=== PATIENT | male | born 1990 | race Caucasian/White ===

== ENCOUNTER → 2016-06-19 | Outpatient (CLI) | payer BC ==
[~2016-06-19] MED LIST: ACET-1311 PO; NAPR1TAB9 PO; OXYC1TAB3 PO
--- NOTE | 2016-06-19 11:26 | DIAGNOSTIC IMAGING REPORT ---
CT SCAN OF THE PARANASAL SINUSES CLINICAL HISTORY: Recurrent sinusitis. COMPARISON STUDY: CT of the brain dated 02/26/2006. TECHNIQUE: High-resolution CT scan of the paranasal sinuses is performed. Images are reviewed in the axial, sagittal, and coronal planes. IV contrast was not administered for this examination. CT DOSE: 273.21 mGycm FINDINGS: Maxillary antra: There is trace dependent mucosal thickening seen bilaterally. Anterior ethmoid sinuses: Clear. Posterior ethmoid sinuses: Trace mucosal thickening is seen in the most posterior air cells bilaterally. Sphenoid sinuses: Mild to moderate mucosal thickening is present on the left. Trace mucosal thickening is seen on the right. Frontal sinuses: Clear. Ostiomeatal complexes: Patent bilaterally. Frontoethmoidal and sphenoethmoidal recesses: The sphenoethmoidal recesses appear patent but are significantly narrowed by mucosal thickening, left greater than right. Frontoethmoidal recesses are clear. Carotid arteries: The carotid arteries are covered and without septal attachments. Ethmoid roofs: There is asymmetric elevation of the left ethmoid roof as compared to the right. Nasal turbinates: Normal in appearance. Nasal septum: There is mild leftward deviation of the bony nasal septum. Optic nerves: Covered. Orbits: The bony orbits are intact. Orbital contents are normal in appearance. Calvarium: The imaged calvarium is normal in appearance Mastoid air cells: There is subtotal opacification of the mastoid air cells bilaterally. There is fluid/debris within the middle ear bilaterally. Brain parenchyma: Partially visualized brain parenchyma is within normal limits. IMPRESSION: 1. Paranasal sinus disease as above. 2. There is subtotal opacification of the mastoid air cells bilaterally. 3. Fluid is present within the middle ear bilaterally. Electronically signed by: David Stanton M.D. 06/19/2016 11:24 AM Dictated Date/Time: 06/19/2016 11:20 AM
== END | disposition home or self-care (01) ==
LOC: C.CTS 10:48
PROVIDERS: ATTEND Nurse Practitioner
DX: H93.8X3 Other specified disorders of ear, bilateral (principal); J32.9 Chronic sinusitis, unspecified

== ENCOUNTER → 2016-07-03 | Outpatient (CLI) | payer BC ==
[~2016-07-03] MED LIST changes: -NAPR1TAB9 PO
[2016-07-03 16:57] LABS: BASO % 0.3 %; BASO ABS # 0.03 K/uL (0-0.2); COMPLETE YES; HEMATOCRIT 41.1 % (42-52); IG% 0.2 %; LYMPH % 18.7 %; LYMPH ABS # 1.75 K/uL (1.2-3.4); MEAN CORPUSCULAR HEMOGLOBIN 28.8 pg (25-34); MEAN CORPUSCULAR HGB CONC 34.3 g/dl (32-36); MEAN PLATELET VOLUME 8.4 fL (7.4-10.4); MONO % 7.8 %; PLATELET COUNT 279 K/uL (130-400); RED BLOOD COUNT 4.89 M/uL (4.7-6.1); WHITE BLOOD COUNT 9.38 K/uL (4.8-10.8)
[2016-07-03 17:05] LABS: POTASSIUM 3.8 mmol/L (3.5-5.1)
[2016-07-03 17:09] LABS: PROTHROMBIN TIME (PATIENT) 10.7 SECONDS (9.0-12.0)
== END | disposition home or self-care (01) ==
LOC: C.LABBFT 06-25 15:40
DX: Z01.818 Encounter for other preprocedural examination (principal)

== ENCOUNTER → 2016-07-05 | Day surgery (SDC) | payer BC ==
[2016-07-02 13:00] VITALS: Ht 168.9 cm; Wt 127.3 kg
[~2016-07-05] VITALS: Ht 168.9 cm; Wt 127.3 kg
[~2016-07-05] MED LIST changes: +ATROPINE SULFATE 0.1 MG/ML 5ML SYR IV PRN; +DEXAMETHASONE SOD INJ 4 MG/ML VIAL ONE; +EpHEDrine SULFATE INJ 50 MG/ML AMP IV PRN; +FENTANYL CITRATE INJ 50 MCG/1 ML 2 ML VIAL IV PRN; +FENTANYL CITRATE INJ 50 MCG/1 ML 2 ML VIAL ONE; +HYDROCODONE/ACETAMOPHEN 5/325MG TAB PO PRN; +LACTATED RINGER'S 1000ML 1,000 ML IV SCH; +LIDOCAINE HCL 2% 2 ML VIAL (20MG/ML) ONE; +MIDAZOLAM HCL 1 MG/ML 2ML VIAL ONE; +OFLOXACIN 0.3% OP SOLN 5 ML BTL ONE; +ONDANSETRON INJ 2 MG/ML 2 ML VIAL IV PRN; +ONDANSETRON INJ 2 MG/ML 2 ML VIAL ONE; +OXYMETAZOLINE HCL 0.05% NA SPR 15 ML BTL ONE; +PROPOFOL IV EMULSION 10 MG/ML 20 ML VIAL IV ONE; +SODIUM CHLORIDE 0.9% 1000ML IV SCH; +SUCCINYLCHOLINE CHLORIDE 20 MG/ML 10 ML VIAL IV ONE
--- NOTE | 2016-07-05 09:52 | History & Physical Bridge - [place] ---
H&P Re-Evaluation Bridge Note: I have examined the patient, reviewed the History & Physical and in the interval since the performance of the History & Physical I have noted the following changes of clinical significance: No changes noted
--- NOTE | 2016-07-05 10:38 | [facility] Operative Report ---
Operative Report Operative Date Jul 05, 2016. Pre-Operative Diagnosis Dysfunction of both Eustachian Tubes, Chronic Otitis Media Post-Operative Diagnosis Same Procedure(s) Performed Bilateral T-Tube Placement Surgeon Dr Colón Roof Slater Surgeon(s) None Estimated Blood Loss 5ML Findings 1. BILATERAL MUCOID MIDDLE EAR EFFUSIONS 2. SEVERELY RETRACTED AND THICKENED TM'S BILATERALLY Specimens None I attest to the content of the Intraoperative Record and any orders documented therein. Any exceptions are noted below.
--- NOTE | 2016-07-05 10:40 | Discharge Instructions ---
Discharge Instructions Admission Reason for Admission: Eustachian Tube Dysfunction, Bilat Chronic O.m. Discharge Discharge Diagnosis / Problem: SAME Discharge Goals Goal(s): Improve function Activity Recommendations Activity Limitations: as noted below 1. DRY EAR PRECAUTIONS WHILE TUBES IN PLACE 2. NO LIFTING > OR = 15LBS FOR 2WEEKS 3. NO NOSE BLOWING FOR 2WEEKS 4. SNEEZE WITH MOUTH OPEN FOR 2WEEKS . Current Hospital Diet Patient's current hospital diet: Discharge Diet Recommended Diet: Regular Diet Procedures Procedures Performed: Bilateral T-Tube Placement Pending Studies Studies pending at discharge: no Medical Emergencies . Who to Call and When: Medical Emergencies: If at any time you feel your situation is an emergency, please call 911 immediately. . Non-Emergent Contact Non-Emergency issues call your: Surgeon . . "Provider Documentation" section prepared by Mj Colón. VTE Core Measure Inpt VTE Proph given/why not?: SCD's
--- NOTE | 2016-07-05 11:14 | OPERATIVE REPORT ---
DATE OF OPERATION: 07/05/2016 PREOPERATIVE DIAGNOSES: 1. Chronic otitis media with effusion. 2. Conductive hearing loss. 3. Eustachian tube dysfunction. POSTOPERATIVE DIAGNOSES: 1. Chronic otitis media with effusion. 2. Conductive hearing loss. 3. Eustachian tube dysfunction. PROCEDURE: Bilateral myringotomy tube placement with T-tubes. SURGEON: Dr. Colón. ANESTHESIA: General endotracheal. ESTIMATED BLOOD LOSS: 5 mL. FINDINGS: 1. Anesthesia - unable to place a laryngeal mask airway without difficulty. 2. Bilateral mucoid middle ear effusions. 3. Severely thickened and retracted tympanic membranes which were inflamed. SPECIMENS: None. COMPLICATIONS: None. INDICATIONS FOR THE PROCEDURE: The patient is a 26-year-old male with a history of chronic otitis media with effusion who has undergone at least 10 sets of bilateral myringotomy tube placements. On examination, he was found to have severely thickened tympanic membranes with likely mucoid middle ear effusion and audiogram shows bilateral mixed hearing loss with a large conductive component. I recommended bilateral myringotomy with tube placement with T tubes in the operating room given the extent of his history and difficulty with placement of those tubes in the office. He presents for the above-mentioned procedure on an outpatient elective basis. DESCRIPTION OF PROCEDURE: After informed consent had been obtained from the patient, the patient was wheeled to the operating room and placed on the operating table in the supine position. Monitors were placed and after induction of general endotracheal anesthesia after first being able to use a laryngeal mask airway, the patient's head was gently turned to the left and a speculum was inserted into the right external auditory canal. A cerumen loop was used to remove excess cerumen. A myringotomy knife was used to make a radial incision in the posterior inferior quadrant on the tympanic membrane which was found to be severely thickened and inflamed. The middle ear space was suctioned free of mucoid middle ear effusion. A silicone T-tube was then placed. The patient had some bleeding with the myringotomy and some Afrin was temporarily placed into the external auditory canal and middle ear space to stop the bleeding. This was then completely suctioned. Floxin drops were then instilled into the middle ear space and a cotton ball was placed with the conchal bowl. The left side was then addressed in a similar fashion with similar intraoperative findings. This marked end of the case. The patient tolerated the procedure well and there were no apparent complications. The patient was extubated and transferred to recovery room in stable condition. I attest to the content of the Intraoperative Record and any orders documented therein. Any exceptio ns are noted below.
--- NOTE | 2016-07-05 11:17 | Anesthesia Progress Nt - [facility] ---
Anesthesia Post Op Note Date & Time Jul 05, 2016 at 11:17 Vital Signs Pain Intensity: 0 Vital Signs Past 12 Hours Date Time Temp Pulse Resp B/P Pulse Ox O2 Delivery O2 Flow Rate FiO2 07/05/16 10:42 36.8 71 16 127/71 96 Diffusion Mask 5 07/05/16 09:47 36.6 79 18 115/75 96 Room Air Notes Mental Status: alert / awake / arousable, participated in evaluation Pt Amnestic to Procedure: Yes Nausea / Vomiting: adequately controlled Pain: adequately controlled Airway Patency, RR, SpO2: stable & adequate BP & HR: stable & adequate Hydration State: stable & adequate Anesthetic Complications: no major complications apparent
[2016-07-05 11:42] VITALS: TEMP 37
[2016-07-05 11:55] VITALS: BP 129/71; PULSE 81; O2SAT 95
== END | disposition home or self-care (01) ==
LOC: X.SURG 09:36
DX: H65.23 Chronic serous otitis media, bilateral (principal); H90.2 Conductive hearing loss, unspecified; H69.83 Other specified disorders of Eustachian tube, bilateral; J30.9 Allergic rhinitis, unspecified; Q24.9 Congenital malformation of heart, unspecified; F41.8 Other specified anxiety disorders; E66.9 Obesity, unspecified; I95.1 Orthostatic hypotension; E55.9 Vitamin D deficiency, unspecified

== ENCOUNTER 2016-07-27 03:41 | Emergency (ER) | payer BC ==
[~2016-07-27] VITALS: Ht 167.6 cm; Wt 135.4 kg
[2016-07-27 03:46] VITALS: TEMP 37; Ht 167.6 cm; Wt 135.4 kg
[2016-07-27] MEDS ORDERED: SODIUM CHLORIDE 0.9% 1000ML 1,000 ML IV STA ×2 (03:54)
[2016-07-27] MEDS ORDERED: ONDANSETRON INJ 2 MG/ML 2 ML VIAL IV STA (03:54)
[2016-07-27] MEDS ORDERED: DICYCLOMINE HCL 10 MG/ML 2 ML AMP IM ONE (04:00)
[2016-07-27] MEDS ORDERED: OPTIRAY 320 IV PRN (04:15)
[2016-07-27 04:30] VITALS: O2SAT 95
[2016-07-27 04:30] LABS: BASO % 0.4 %; BASO ABS # 0.03 K/uL (0-0.2); COMPLETE YES; HEMATOCRIT 39.2 % (42-52); IG% 0.6 %; LYMPH % 18.4 %; LYMPH ABS # 1.43 K/uL (1.2-3.4); MEAN CELL VOLUME 82.2 fL (80-100); MEAN CORPUSCULAR HEMOGLOBIN 29.4 pg (25-34); MEAN CORPUSCULAR HGB CONC 35.7 g/dl (32-36); MEAN PLATELET VOLUME 8.1 fL (7.4-10.4); MONO % 7.7 %; NEUT % 68.9 %; PLATELET COUNT 260 K/uL (130-400); RED BLOOD COUNT 4.77 M/uL (4.7-6.1); WHITE BLOOD COUNT 7.79 K/uL (4.8-10.8)
[2016-07-27] MEDS ORDERED: ACET-1311 PO (04:32)
[2016-07-27 04:42] LABS: URINE APPEARANCE CLEAR (CLEAR); URINE BILIRUBIN NEG (NEG); URINE COLOR DK YELLOW; URINE EPITHELIAL CELL AUTO 0-5 /lpf (0-5); URINE NITRITE NEG (NEG); URINE SPECIFIC GRAVITY 1.032 (1.000-1.030); UROBILINOGEN NEG (NEG); ZZUR CULT IF INDIC CLEAN CATCH NO
[2016-07-27 04:46] LABS: MANUAL MICROSCOPIC REQUIRED? NO; REVIEW REQ? YES
[2016-07-27 04:55] LABS: ALT/SGPT 49 U/L (12-78); AST/SGOT 16 U/L (15-37); BLOOD UREA NITROGEN 17 mg/dl (7-18); BUN/CREATININE RATIO 20.4 (10-20); CALCIUM 9.1 mg/dl (8.5-10.1); CARBON DIOXIDE 26 mmol/L (21-32); CHLORIDE 106 mmol/L (98-107); CREATININE 0.82 mg/dl (0.60-1.40); GLUCOSE 120 mg/dl (70-99); POTASSIUM 3.9 mmol/L (3.5-5.1); SODIUM 141 mmol/L (136-145)
[2016-07-27 04:58] LABS: ALKALINE PHOSPHATASE 63 U/L (45-117)
--- NOTE | 2016-07-27 06:01 | EMERGENCY ROOM VISIT NOTE ---
History First contact with patient: 03:51 Chief Complaint: ABDOMINAL PAIN Stated Complaint: THROWING UP, L ABDOMINAL PAIN Nursing Triage Summary: left sided abd pain that has been worsening since 0100 today. pt reports vomiting x8 prior to arrival. pt still has gall bladder and appendix. pt reports soft loose stools. no diarrhea. History of Present Illness The patient is a 26 year old male who presents to the Emergency Room with complaints of nausea with vomiting and with left lower quadrant pain for the past few hours. He describes the pain as aching, ranging in severity currently 6 out of 10. It does not radiate. Nothing makes it better or worse. Patient felt somewhat constipated and tried a stool softener they gave loose stools. Patient had a colonoscopy in the past which was normal per patient. No history of similar symptoms in the past. Patient denies chest pain, dyspnea, fever, chills, cough, congestion, back pain, testicular pain, penile pain. No black or blood in the vomit or stool. Review of Systems See HPI for pertinent positives & negatives. A total of 10 systems reviewed and were otherwise negative. Past Medical/Surgical History Medical Problems: (1) Depression (2) Insomnia Family History Depression Social History Smoking Status: Former Smoker Alcohol Use: none Drug Use: none Marital Status: Housing Status: lives with significant other Current/Historical Medications Scheduled PRN Acetaminophen (Tylenol), 650 MG PO DIRECTED PRN for Pain or Fever Allergies Coded Allergies: Penicillins (Unverified Allergy, Mild, UNKNOWN, 07/27/16) Physical Exam Vital Signs Date Time Temp Pulse Resp B/P Pulse Ox O2 Delivery O2 Flow Rate FiO2 07/27/16 05:22 85 18 135/77 96 Room Air 07/27/16 04:30 95 Room Air 07/27/16 03:46 37.0 81 20 135/97 95 Room Air Physical Exam VITALS: Vitals are noted on the nurse's note and reviewed by myself. Vital signs stable. GENERAL: Pleasant male, in no acute distress, nondiaphoretic, well-developed well-nourished. SKIN: The skin was without rashes, erythema, edema, or bruising. There is no tenting of the skin. Capillary reflex less than 2 seconds. HEAD: Normocephalic atraumatic. EARS: External auditory canals clear, tympanic membranes pearly zavala without erythema or effusion bilaterally. EYES: Pupils equal round and reactive to light and accommodation. Conjunctivae without injection, sclerae without icterus. Extraocular movements intact. NOSE: Patent, turbinates without inflammation or discharge. MOUTH: Mucous membranes moist. Pharynx without erythema or exudate. Uvula midline. Airway patent. Tongue does not deviate. NECK: Supple without nuchal rigidity. No lymphadenopathy. No thyromegaly. Cervical spine is nontender. No JVD. HEART: Regular rate and rhythm without murmurs gallops or rubs. LUNGS: Clear to auscultation bilaterally without wheezes, rales or rhonchi. No dullness to percussion. No retractions or accessory muscle use. ABDOMEN: Positive bowel sounds x 4. Normal tympanic percussion. Soft, protuberant, obese, tender to palpation left lower quadrant, no CVA tenderness, without masses or organomegaly. Navarrete sign negative. No guarding or rebound tenderness. MUSCULOSKELETAL: No muscle atrophy, erythema, or edema noted. NEURO: Patient was alert and oriented to person place and time. Normal sensation to light and sharp touch. No focal neurological deficits. Medical Decision & Procedures Laboratory Results 07/27/16 04:15 Red Blood Count 4.77, Mean Corpuscular Volume 82.2, Mean Corpuscular Hemoglobin 29.4, Mean Corpuscular Hemoglobin Concent 35.7, Mean Platelet Volume 8.1, Neutrophils (%) (Auto) 68.9, Lymphocytes (%) (Auto) 18.4, Monocytes (%) (Auto) 7.7, Eosinophils (%) (Auto) 4.0, Basophils (%) (Auto) 0.4, Neutrophils # (Auto) 5.37, Lymphocytes # (Auto) 1.43, Monocytes # (Auto) 0.60, Eosinophils # (Auto) 0.31, Basophils # (Auto) 0.03 07/27/16 04:15 Test 07/27/16 04:15 07/27/16 04:30 White Blood Count 7.79 K/uL (4.8-10.8) Red Blood Count 4.77 M/uL (4.7-6.1) Hemoglobin 14.0 g/dL (14.0-18.0) Hematocrit 39.2 % (42-52) Mean Corpuscular Volume 82.2 fL (80-100) Mean Corpuscular Hemoglobin 29.4 pg (25-34) Mean Corpuscular Hemoglobin Concent 35.7 g/dl (32-36) Platelet Count 260 K/uL (130-400) Mean Platelet Volume 8.1 fL (7.4-10.4) Neutrophils (%) (Auto) 68.9 % Lymphocytes (%) (Auto) 18.4 % Monocytes (%) (Auto) 7.7 % Eosinophils (%) (Auto) 4.0 % Basophils (%) (Auto) 0.4 % Neutrophils # (Auto) 5.37 K/uL (1.4-6.5) Lymphocytes # (Auto) 1.43 K/uL (1.2-3.4) Monocytes # (Auto) 0.60 K/uL (0.11-0.59) Eosinophils # (Auto) 0.31 K/uL (0-0.5) Basophils # (Auto) 0.03 K/uL (0-0.2) RDW Standard Deviation 40.8 fL (36.4-46.3) RDW Coefficient of Variation 13.5 % (11.5-14.5) Immature Granulocyte % (Auto) 0.6 % Immature Granulocyte # (Auto) 0.05 K/uL (0.00-0.02) Anion Gap 9.0 mmol/L (3-11) Est Creatinine Clear Calc Drug Dose 178.4 ml/min Estimated GFR () 141.5 Estimated GFR (Non- 122.0 BUN/Creatinine Ratio 20.4 (10-20) Calcium Level 9.1 mg/dl (8.5-10.1) Total Bilirubin 0.3 mg/dl (0.2-1) Direct Bilirubin < 0.1 mg/dl (0-0.2) Aspartate Amino Transf (AST/SGOT) 16 U/L (15-37) Alanine Aminotransferase (ALT/SGPT) 49 U/L (12-78) Alkaline Phosphatase 63 U/L (45-117) Total Protein 7.6 gm/dl (6.4-8.2) Albumin 3.7 gm/dl (3.4-5.0) Lipase 166 U/L (73-393) Urine Color DK YELLOW Urine Appearance CLEAR (CLEAR) Urine pH 5.0 (4.5-7.5) Urine Specific [place] 1.032 (1.000-1.030) Urine Protein NEG (NEG) Urine Glucose (UA) NEG (NEG) Urine Ketones NEG (NEG) Urine Occult Blood 3+ (NEG) Urine Nitrite NEG (NEG) Urine Bilirubin NEG (NEG) Urine Urobilinogen NEG (NEG) Urine Leukocyte Esterase NEG (NEG) Urine WBC (Auto) 1-5 /hpf (0-5) Urine RBC (Auto) 10-30 /hpf (0-4) Urine Hyaline Casts (Auto) 1-5 /lpf (0-5) Urine Epithelial Cells (Auto) 0-5 /lpf (0-5) Urine Bacteria (Auto) NEG (NEG) Urine Crystals CALCIUM OXALATE (NONE Medications Administered Medications (Trade) Dose Ordered Sig/David Route Start Time Stop Time Status Last Admin Dose Admin Sodium Chloride (Nss 1000ml) 1,000 ml @ 999 mls/hr Q1H1M STAT IV 07/27/16 03:54 07/27/16 04:54 DC 07/27/16 04:27 999 MLS/HR Ondansetron HCl (Zofran Inj) 4 mg NOW STAT IV 07/27/16 03:54 07/27/16 03:57 DC 07/27/16 04:27 4 MG Dicyclomine HCl (Bentyl Inj) 20 mg NOW ONCE IM 07/27/16 04:00 07/27/16 04:01 DC 07/27/16 04:28 20 MG ED Course Prior records/ancillary studies reviewed. Triage Nursing notes reviewed. The patient's history was concerning for nausea, vomiting, loose stool, and abdominal pain. Differential diagnosis: Etiologies such as gastroenteritis, food borne illness, infections, appendicitis , diverticulitis, inflammatory bowel disease, obstruction, GI bleed, biliary pathology, as well as others were entertained. Physical examination findings: As above. Abdominal examination revealed left lower quadrant tenderness. Vital signs reviewed and revealed stable. ER treatment provided: IV hydration 1 L NSS. Zofran, Bentyl On reassessment the patient felt better. Patient was tolerating p.o. intake. Diagnostics interpretation by me: The labs revealed No worrisome leukocytosis or anemia Imaging studies: CT scan concerning for left nephrolithiasis at the distal left ureter This appears to be consistent with left renal colic. Patient did not have acute abdomen on exam. He is well-appearing. He was advised to clear liquid diet today and then progress as tolerated to bland diet tomorrow. He was advised to strain his urine until the stone passes. He was advised to follow- up with family care and/or urology in a few days or here in the ER sooner for abdominal pain, fevers, vomiting, worsening signs or symptoms or as needed. By the evaluation outlined above emergent etiologies such as appendicitis, diverticulitis, obstruction, cardiac sources, mesenteric ischemia, aortic pathology, inflammatory bowel disease, PUD, biliary pathology, UTI, as well as others were deemed relatively unlikely. The pt informed about the findings as listed above. All questions were answered and pleased with the treatment. Return instructions were outlined and the patient was discharged in stable condition. Outpatient prescription management: zofran, OxyIR Referral: The patient was referred to their primary care physician or urology for follow- up in 2 to 3 days for a recheck of the current condition. Case reviewed with my attending Medical Decision As above [place] Drug Monitoring Program Search Results: patient reviewed within database, no issues identified Impression Primary Impression: Renal colic on left side Additional Impression: Nausea & vomiting Departure Information Dispostion Home / Self-Care Condition GOOD Referrals Elsy Ortez C.R.NThaliaPThalia (PCP) Patient Instructions My [facility] Additional Instructions DO NOT drive, drink alcohol, operate machinery, or perform dangerous activities today. You were given medications in the ER that can affect your ability to safely function or operate a vehicle. Oxycodone Immediate Release (OxyIR) 5mg: Take 1-2 pills every four hours for pain. Avoid alcohol, operating machinery or dangerous equipment, working on ladders or roofs, DRIVING, or situations where being under the influence may be dangerous. It is recommended to use an [id number] stool softener such as Colace, 100mg twice daily while taking this medication to avoid constipation. Zofran 4 mg: Take one every six hours as needed for nausea. Avoid alcohol, operating machinery or dangerous equipment, working on ladders or roofs, DRIVING , or situations where being under the influence may be dangerous. Ibuprofen(Motrin, Advil) may be used for fever or pain. Use 600mg every six hours as needed. Take with food. Avoid using more than 2400mg in a 24 hour period. Do not use 2400mg per day for more than three consecutive days without physician direction. Prolonged inappropriate use can lead to stomach upset or ulcers. This medication can be taken if you need to drive, work, or perform activities which may be dangerous when taking narcotic pain medication. (AND/OR) Acetaminophen(Tylenol) may be used for fever or pain. Use 1000mg every six hours as needed. Avoid using more than 3000mg in a 24 hour period. This medication can be taken if you need to drive, work, or perform activities which may be dangerous when taking narcotic pain medication. Strain your urine and collect all the stones or debris for the urologists. Rest and avoid strenuous activity until your stone passes and symptoms resolve. Drink plenty of fluids. Continue current medications. Return to the ER for worsening abdominal or back pain, vomiting, fevers, passing out, or as needed. Follow up with [facility] tomorrow, [phone], to arrange a visit. Problem Qualifiers
[2016-07-27] MEDS ORDERED: OXYC1TAB3 PO (06:04)
[2016-07-27] MEDS ORDERED: OXYCODONE IR HOME PACK PO ONE (06:15)
[2016-07-27] MEDS ORDERED: ONDANSETRON HOME PACK 4MG OD TAB PO ONE (06:15)
[2016-07-27 06:21] VITALS: BP 127/74; PULSE 78; O2SAT 98
--- NOTE | 2016-07-27 07:50 | DIAGNOSTIC IMAGING REPORT ---
CT OF THE ABDOMEN AND PELVIS WITH CONTRAST CLINICAL HISTORY: Left lower quadrant abdominal pain. Vomiting. COMPARISON STUDY: CT of the abdomen and pelvis September 10, 2010. TECHNIQUE: Following IV administration of 93 mL of Optiray-320, axial images of the abdomen and pelvis were obtained from the lung bases to the proximal femurs. Images were reviewed in the axial, sagittal, and coronal planes. IV contrast was administered without complication. CT DOSE: 1950.99 mGy.cm FINDINGS: A 3 mm distal left ureteral calculus results in minimal dilatation of the left collecting system and ureter. There is fatty infiltration of the liver. Gallstones are noted within the gallbladder. The spleen, adrenal glands and pancreas are normal. Prominent mesenteric lymph nodes measure up to 1.1 cm in short axis diameter. There are pericolonic lymph nodes as well. There is no evidence for a bowel obstruction. The appendix is normal. IMPRESSION: 1. 3 mm distal left ureteral calculus with minimal resultant dilatation of the left ureter and collecting system. 2. Fatty liver. 3. Prominent mesenteric/pericolonic lymph nodes. These are nonspecific although may be reactive. Normal appendix. 4. Cholelithiasis. Electronically signed by: Gato Weber M.D. 07/27/2016 7:49 AM Dictated Date/Time: 07/27/2016 7:44 AM
== END 2016-07-27 06:25 | disposition home or self-care (01) ==
LOC: C.EDB 03:42
DX: N23 Unspecified renal colic (principal); R11.2 Nausea with vomiting, unspecified; F32.9 Major depressive disorder, single episode, unspecified; Z87.891 Personal history of nicotine dependence; Z88.0 Allergy status to penicillin; Z81.8 Family history of other mental and behavioral disorders

== ENCOUNTER 2016-07-28 04:53 | Emergency (ER) | payer BC ==
[~2016-07-28] VITALS: Ht 167.6 cm; Wt 137.6 kg
[~2016-07-28 04:53] MED LIST changes: -ATROPINE SULFATE 0.1 MG/ML 5ML SYR IV PRN; -DEXAMETHASONE SOD INJ 4 MG/ML VIAL ONE; -EpHEDrine SULFATE INJ 50 MG/ML AMP IV PRN; -FENTANYL CITRATE INJ 50 MCG/1 ML 2 ML VIAL IV PRN; -FENTANYL CITRATE INJ 50 MCG/1 ML 2 ML VIAL ONE; -HYDROCODONE/ACETAMOPHEN 5/325MG TAB PO PRN; -LACTATED RINGER'S 1000ML 1,000 ML IV SCH; -LIDOCAINE HCL 2% 2 ML VIAL (20MG/ML) ONE; -MIDAZOLAM HCL 1 MG/ML 2ML VIAL ONE; -OFLOXACIN 0.3% OP SOLN 5 ML BTL ONE; -ONDANSETRON INJ 2 MG/ML 2 ML VIAL IV PRN; -ONDANSETRON INJ 2 MG/ML 2 ML VIAL ONE; -OXYMETAZOLINE HCL 0.05% NA SPR 15 ML BTL ONE; -PROPOFOL IV EMULSION 10 MG/ML 20 ML VIAL IV ONE; -SODIUM CHLORIDE 0.9% 1000ML IV SCH; -SUCCINYLCHOLINE CHLORIDE 20 MG/ML 10 ML VIAL IV ONE
[2016-07-28 04:57] VITALS: TEMP 36.8; Ht 167.6 cm; Wt 137.6 kg
[2016-07-28] MEDS ORDERED: SODIUM CHLORIDE 0.9% 1000ML 1,000 ML IV STA (05:03)
[2016-07-28] MEDS ORDERED: KETOROLAC TROMETHAMINE 30 MG/ML VIAL IV STA (05:03)
[2016-07-28] MEDS ORDERED: ONDANSETRON INJ 2 MG/ML 2 ML VIAL IV STA (05:03)
[2016-07-28] MEDS ORDERED: MoRPHine SULFATE 4 MG/ML 1 ML CARP\\VIAL IV STA (05:03)
[2016-07-28 05:52] LABS: URINE APPEARANCE CLEAR (CLEAR); URINE COLOR YELLOW; ZZUR CULT IF INDIC CLEAN CATCH NO
[2016-07-28 05:53] LABS: MANUAL MICROSCOPIC REQUIRED? NO; REVIEW REQ? YES; URINE BILIRUBIN NEG (NEG); URINE EPITHELIAL CELL AUTO 0-5 /lpf (0-5); URINE NITRITE NEG (NEG); UROBILINOGEN NEG (NEG)
[2016-07-28 05:56] LABS: BUN/CREATININE RATIO 14.7 (10-20); CALCIUM 8.5 mg/dl (8.5-10.1); CREATININE 0.92 mg/dl (0.60-1.40); POTASSIUM 3.7 mmol/L (3.5-5.1)
[2016-07-28 05:57] LABS: BASO % 0.2 %; BASO ABS # 0.02 K/uL (0-0.2); COMPLETE YES; EOS % 4.4 %; HEMATOCRIT 39.3 % (42-52); IG% 0.7 %; LYMPH % 23.5 %; LYMPH ABS # 2.02 K/uL (1.2-3.4); MEAN CORPUSCULAR HEMOGLOBIN 29.3 pg (25-34); MEAN CORPUSCULAR HGB CONC 34.9 g/dl (32-36); MEAN PLATELET VOLUME 8.3 fL (7.4-10.4); MONO % 6.4 %; NEUT % 64.8 %; PLATELET COUNT 285 K/uL (130-400); RED BLOOD COUNT 4.68 M/uL (4.7-6.1); WHITE BLOOD COUNT 8.59 K/uL (4.8-10.8)
[2016-07-28 06:46] VITALS: BP 149/95; PULSE 92; O2SAT 95
--- NOTE | 2016-07-28 06:47 | EMERGENCY ROOM VISIT NOTE ---
History First contact with patient: 05:03 Chief Complaint: FLANK PAIN Stated Complaint: LEFT BACK PAIN, GROIN PAIN History of Present Illness The patient is a 26 year old male who presents to the Emergency Room with complaints of ongoing left flank pain that raised his groin for the past day who was seen by myself yesterday and diagnosed with left renal colic. Patient states the pain meds are not helping. He is only been taking 1 OxyIR. He describes it as aching, ranging in severity 8 out of 10. Nothing makes it better or worse. Patient denies chest pain, dyspnea, fever, chills, dysuria. Review of Systems See HPI for pertinent positives & negatives. A total of 10 systems reviewed and were otherwise negative. Past Medical/Surgical History Medical Problems: (1) Depression (2) Insomnia Kidney stones Family History Depression Social History Smoking Status: Never Smoker Alcohol Use: none Drug Use: none Marital Status: Housing Status: lives with significant other Current/Historical Medications Scheduled PRN Acetaminophen (Tylenol), 650 MG PO DIRECTED PRN for Pain or Fever Oxycodone Immediate Rel Tab (Roxicodone Ir), 1-2 TAB PO Q4H PRN for Severe Pain Allergies Coded Allergies: Penicillins (Unverified Allergy, Mild, UNKNOWN, 07/27/16) Physical Exam Vital Signs Date Time Temp Pulse Resp B/P Pulse Ox O2 Delivery O2 Flow Rate FiO2 07/28/16 04:57 36.8 99 18 158/98 96 Room Air Physical Exam VITALS: Vitals are noted on the nurse's note and reviewed by myself. Vital signs stable. GENERAL: Pleasant male, in no acute distress, nondiaphoretic, well-developed well-nourished. SKIN: The skin was without rashes, erythema, edema, or bruising. There is no tenting of the skin. Capillary reflex less than 2 seconds. HEAD: Normocephalic atraumatic. EARS: External auditory canals clear, tympanic membranes pearly zavala without erythema or effusion bilaterally. EYES: Pupils equal round and reactive to light and accommodation. Conjunctivae without injection, sclerae without icterus. Extraocular movements intact. NOSE: Patent, turbinates without inflammation or discharge. MOUTH: Mucous membranes moist. Pharynx without erythema or exudate. Uvula midline. Airway patent. Tongue does not deviate. NECK: Supple without nuchal rigidity. No lymphadenopathy. No thyromegaly. Cervical spine is nontender. No JVD. HEART: Regular rate and rhythm without murmurs gallops or rubs. LUNGS: Clear to auscultation bilaterally without wheezes, rales or rhonchi. No dullness to percussion. No retractions or accessory muscle use. ABDOMEN: Positive bowel sounds x 4. Normal tympanic percussion. Soft, protuberant, obese, no CVA tenderness, nontender, without masses or organomegaly. Navarrete sign negative. No guarding or rebound tenderness. MUSCULOSKELETAL: No muscle atrophy, erythema noted. NEURO: Patient was alert and oriented to person place and time. Normal sensation to light and sharp touch. No focal neurological deficits. Medical Decision & Procedures Laboratory Results 07/28/16 05:26 Red Blood Count 4.68, Mean Corpuscular Volume 84.0, Mean Corpuscular Hemoglobin 29.3, Mean Corpuscular Hemoglobin Concent 34.9, Mean Platelet Volume 8.3, Neutrophils (%) (Auto) 64.8, Lymphocytes (%) (Auto) 23.5, Monocytes (%) (Auto) 6.4, Eosinophils (%) (Auto) 4.4, Basophils (%) (Auto) 0.2, Neutrophils # (Auto) 5.56, Lymphocytes # (Auto) 2.02, Monocytes # (Auto) 0.55, Eosinophils # (Auto) 0.38, Basophils # (Auto) 0.02 07/28/16 05:26 Test 07/28/16 05:26 White Blood Count 8.59 K/uL (4.8-10.8) Red Blood Count 4.68 M/uL (4.7-6.1) Hemoglobin 13.7 g/dL (14.0-18.0) Hematocrit 39.3 % (42-52) Mean Corpuscular Volume 84.0 fL (80-100) Mean Corpuscular Hemoglobin 29.3 pg (25-34) Mean Corpuscular Hemoglobin Concent 34.9 g/dl (32-36) Platelet Count 285 K/uL (130-400) Mean Platelet Volume 8.3 fL (7.4-10.4) Neutrophils (%) (Auto) 64.8 % Lymphocytes (%) (Auto) 23.5 % Monocytes (%) (Auto) 6.4 % Eosinophils (%) (Auto) 4.4 % Basophils (%) (Auto) 0.2 % Neutrophils # (Auto) 5.56 K/uL (1.4-6.5) Lymphocytes # (Auto) 2.02 K/uL (1.2-3.4) Monocytes # (Auto) 0.55 K/uL (0.11-0.59) Eosinophils # (Auto) 0.38 K/uL (0-0.5) Basophils # (Auto) 0.02 K/uL (0-0.2) RDW Standard Deviation 41.6 fL (36.4-46.3) RDW Coefficient of Variation 13.6 % (11.5-14.5) Immature Granulocyte % (Auto) 0.7 % Immature Granulocyte # (Auto) 0.06 K/uL (0.00-0.02) Urine Color YELLOW Urine Appearance CLEAR (CLEAR) Urine pH 5.0 (4.5-7.5) Urine Specific [place] 1.020 (1.000-1.030) Urine Protein NEG (NEG) Urine Glucose (UA) NEG (NEG) Urine Ketones NEG (NEG) Urine Occult Blood 3+ (NEG) Urine Nitrite NEG (NEG) Urine Bilirubin NEG (NEG) Urine Urobilinogen NEG (NEG) Urine Leukocyte Esterase NEG (NEG) Urine WBC (Auto) 1-5 /hpf (0-5) Urine RBC (Auto) >30 /hpf (0-4) Urine Hyaline Casts (Auto) 0 /lpf (0-5) Urine Epithelial Cells (Auto) 0-5 /lpf (0-5) Urine Bacteria (Auto) NEG (NEG) Urine Crystals CALCIUM OXALATE (NONE Anion Gap 11.0 mmol/L (3-11) Est Creatinine Clear Calc Drug Dose 160.6 ml/min Estimated GFR () 132.6 Estimated GFR (Non- 114.4 BUN/Creatinine Ratio 14.7 (10-20) Calcium Level 8.5 mg/dl (8.5-10.1) Medications Administered Medications (Trade) Dose Ordered Sig/David Route Start Time Stop Time Status Last Admin Dose Admin Ketorolac Tromethamine (Toradol Inj) 30 mg NOW STAT IV 07/28/16 05:03 07/28/16 05:05 DC 07/28/16 05:36 30 MG Morphine Sulfate (MoRPHine SULFATE INJ) 4 mg NOW STAT IV 07/28/16 05:03 07/28/16 05:05 DC 07/28/16 05:35 4 MG Ondansetron HCl 4 mg 4 mg NOW STAT IV 07/28/16 05:03 07/28/16 05:05 DC 07/28/16 05:36 4 MG Sodium Chloride (Nss 1000ml) 1,000 ml @ 999 mls/hr Q1H1M STAT IV 07/28/16 05:03 07/28/16 06:03 DC 07/28/16 05:35 999 MLS/HR ED Course Prior records/ancillary studies reviewed. Triage Nursing notes reviewed. Additional history obtained from the family. The patient's history was concerning for flank pain. Differential diagnosis: Etiologies such as renal colic, appendicitis, diverticulitis, mesenteric ischemia, aortic pathology, infections, inflammatory bowel disease, PUD, biliary pathology, UTI, as well as others were entertained. Physical examination findings: As above. ER treatment provided: Morphine, Toradol, Zofran, IV fluids On reassessment the patient felt better. Diagnostic interpretation by me: The labs revealed no worrisome leukocytosis or electrolyte abnormality besides mild hyperglycemia without DKA. Urinalysis revealed hematuria. There was no sign of UTI. Imaging studies: CT of the abdomen and pelvis as above. CT OF THE ABDOMEN AND PELVIS WITH CONTRAST CLINICAL HISTORY: Left lower quadrant abdominal pain. Vomiting. COMPARISON STUDY: CT of the abdomen and pelvis September 10, 2010. TECHNIQUE: Following IV administration of 93 mL of Optiray-320, axial images of the abdomen and pelvis were obtained from the lung bases to the proximal femurs. Images were reviewed in the axial, sagittal, and coronal planes. IV contrast was administered without complication. CT DOSE: 1950.99 mGy.cm FINDINGS: A 3 mm distal left ureteral calculus results in minimal dilatation of the left collecting system and ureter. There is fatty infiltration of the liver. Gallstones are noted within the gallbladder. The spleen, adrenal glands and pancreas are normal. Prominent mesenteric lymph nodes measure up to 1.1 cm in short axis diameter. There are pericolonic lymph nodes as well. There is no evidence for a bowel obstruction. The appendix is normal. IMPRESSION: 1. 3 mm distal left ureteral calculus with minimal resultant dilatation of the left ureter and collecting system. 2. Fatty liver. 3. Prominent mesenteric/pericolonic lymph nodes. These are nonspecific although may be reactive. Normal appendix. 4. Cholelithiasis. Electronically signed by: Gato Weber M.D. It appears that the patient has isolated renal colic from a left sided stone. Patient felt much better and requested to leave. He is advised take to OxyIR's every 4 hours as needed for severe pain. He is advised to follow-up with family care and urology this week and to continue to strain his urine. He was advised to return to the ER immediately for severe pain, fevers, vomiting, worsening signs or symptoms or as needed.By the evaluation outlined above emergent etiologies such as appendicitis, diverticulitis, mesenteric ischemia, aortic pathology, infections, inflammatory bowel disease, PUD, biliary pathology , UTI, as well as others were deemed relatively unlikely. The pt informed about the findings as listed above. All questions were answered and pleased with the treatment. Return instructions were outlined and the patient was discharged in stable condition. Outpatient prescription management: Oxy IR 5mg 1-2 po Q4 hrs prn Referral: The pt was referred back to [facility] for follow up care regarding their stone. or The patient was referred back to their primary care physician for follow-up in 2 to 3 days for a recheck of the current condition. Medical Decision As above Impression Primary Impression: Renal colic on left side Additional Impression: Hyperglycemia Departure Information Dispostion Home / Self-Care Condition GOOD Referrals Elsy Ortez C.R.N.P. (PCP) Patient Instructions My [facility] Additional Instructions Recheck your blood sugar with your family care doctor. It was high today. DO NOT drive, drink alcohol, operate machinery, or perform dangerous activities today. You were given medications in the ER that can affect your ability to safely function or operate a vehicle. Oxycodone Immediate Release (OxyIR) 5mg: Take 1-2 pills every four hours for pain. Avoid alcohol, operating machinery or dangerous equipment, working on ladders or roofs, DRIVING, or situations where being under the influence may be dangerous. It is recommended to use an [id number] stool softener such as Colace, 100mg twice daily while taking this medication to avoid constipation. Zofran 4 mg: Take one every six hours as needed for nausea. Avoid alcohol, operating machinery or dangerous equipment, working on ladders or roofs, DRIVING , or situations where being under the influence may be dangerous. Ibuprofen(Motrin, Advil) may be used for fever or pain. Use 600mg every six hours as needed. Take with food. Avoid using more than 2400mg in a 24 hour period. Do not use 2400mg per day for more than three consecutive days without physician direction. Prolonged inappropriate use can lead to stomach upset or ulcers. This medication can be taken if you need to drive, work, or perform activities which may be dangerous when taking narcotic pain medication. (AND/OR) Acetaminophen(Tylenol) may be used for fever or pain. Use 1000mg every six hours as needed. Avoid using more than 3000mg in a 24 hour period. This medication can be taken if you need to drive, work, or perform activities which may be dangerous when taking narcotic pain medication. Strain your urine and collect all the stones or debris for the urologists. Rest and avoid strenuous activity until your stone passes and symptoms resolve. Drink plenty of fluids. Continue current medications. Return to the ER for worsening abdominal or back pain, vomiting, fevers, passing out, or as needed. Follow up with [facility] tomorrow, [phone], to arrange a visit. Problem Qualifiers
[2016-07-28] MEDS ORDERED: OXYCODONE IR HOME PACK PO ONE (07:00)
[2016-07-28] MEDS ORDERED: ONDANSETRON HOME PACK 4MG OD TAB PO ONE (07:00)
== END 2016-07-28 07:01 | disposition home or self-care (01) ==
LOC: C.EDB 04:54
DX: N20.2 Calculus of kidney with calculus of ureter (principal); F32.9 Major depressive disorder, single episode, unspecified; G47.00 Insomnia, unspecified; Z87.442 Personal history of urinary calculi; Z88.0 Allergy status to penicillin; Z81.8 Family history of other mental and behavioral disorders

== ENCOUNTER → 2016-07-29 | Outpatient (CLI) | payer BC | END | disposition home or self-care (01) | LOC: C.LABSPEC 17:25 | PROVIDERS: ATTEND Nurse Practitioner Family | DX: N20.0 Calculus of kidney (principal) ==

== ENCOUNTER → 2016-09-09 | Outpatient (CLI) | payer BC ==
[~2016-09-09] MED LIST changes: +CYCL10TA6 PO; +HYDR-5688 PO; +IBUP-1105 PO; +PRED50TA PO
[2016-09-09 17:31] LABS: BASO % 0.3 %; BASO ABS # 0.02 K/uL (0-0.2); COMPLETE YES; EOS % 5.5 %; HEMATOCRIT 41.1 % (42-52); IG% 0.4 %; LYMPH % 25.2 %; LYMPH ABS # 1.92 K/uL (1.2-3.4); MEAN CORPUSCULAR HEMOGLOBIN 28.3 pg (25-34); MEAN CORPUSCULAR HGB CONC 34.5 g/dl (32-36); MEAN PLATELET VOLUME 8.3 fL (7.4-10.4); MONO % 4.7 %; NEUT % 63.9 %; PLATELET COUNT 298 K/uL (130-400); RED BLOOD COUNT 5.01 M/uL (4.7-6.1); WHITE BLOOD COUNT 7.63 K/uL (4.8-10.8)
[2016-09-09 17:45] LABS: BLOOD UREA NITROGEN 9 mg/dl (7-18); BUN/CREATININE RATIO 12.8 (10-20); C-REACTIVE PROTEIN 0.77 mg/dl (0-0.29); CALCIUM 8.8 mg/dl (8.5-10.1); CARBON DIOXIDE 28 mmol/L (21-32); CHLORIDE 106 mmol/L (98-107); CREATININE 0.72 mg/dl (0.60-1.40); GLUCOSE 129 mg/dl (70-99); POTASSIUM 3.6 mmol/L (3.5-5.1); SODIUM 142 mmol/L (136-145)
[2016-09-17 15:34] LABS: ISOSPORA+CYCLOSPORA NOT DETECTED; O&P GIARDIA AG NOT DETECTED (NOT DETECTED); O&P SOURCE OTHER-STOOL
== END | disposition home or self-care (01) ==
LOC: C.LABBFT 17:54
PROVIDERS: ATTEND Nurse Practitioner
DX: R19.7 Diarrhea, unspecified (principal)

== ENCOUNTER → 2016-11-27 | Outpatient (CLI) | payer OTHER, BC ==
--- NOTE | 2016-11-27 10:18 | DIAGNOSTIC IMAGING REPORT ---
RIGHT KNEE 2 VIEWS CLINICAL HISTORY: Right knee pain. FINDINGS: AP and lateral views of the right knee are obtained. No prior studies are available for comparison at the time of dictation. The skeletal structures are well mineralized. No fracture is seen. The joint spaces of the knee are well-maintained. There is no joint effusion. The overlying soft tissues are within normal limits. IMPRESSION: Unremarkable radiographic assessment of the right knee. Electronically signed by: David Stanton M.D. 11/27/2016 10:17 AM Dictated Date/Time: 11/27/2016 10:16 AM
== END | disposition home or self-care (01) ==
LOC: C.RAD1850 10:02
PROVIDERS: ATTEND Nurse Practitioner Family
DX: R41.0 Disorientation, unspecified (principal); M25.561 Pain in right knee; W19.XXXA Unspecified fall, initial encounter

== ENCOUNTER 2017-05-04 15:33 | Emergency (ER) | payer OTHER, BC ==
[~2017-05-04] VITALS: Ht 170.2 cm; Wt 145.2 kg
[~2017-05-04 15:33] MED LIST changes: -CYCL10TA6 PO; -HYDR-5688 PO; -IBUP-1105 PO; -OXYC1TAB3 PO; -PRED50TA PO
[2017-05-04 15:44] VITALS: TEMP 36.8; Ht 170.2 cm; Wt 145.2 kg
[2017-05-04] MEDS ORDERED: IBUP-1105 PO (16:03)
[2017-05-04] MEDS ORDERED: KETOROLAC TROMETHAMINE 60 MG/2 ML VIAL IM STA (16:06)
[2017-05-04] MEDS ORDERED: DEXAMETHASONE **PF** INJ 10 MG/ML VIAL IM ONE (16:15)
--- NOTE | 2017-05-04 17:06 | DIAGNOSTIC IMAGING REPORT ---
THORACIC SPINE 3 VIEWS HISTORY: Mid back injury at work COMPARISON: Thoracic spine 11/14/2014. FINDINGS: There is no fracture. No subluxation. Disc spaces are preserved. IMPRESSION: No fracture or subluxation within the thoracic spine. Electronically signed by: Brian Mckeon M.D. 05/04/2017 5:05 PM Dictated Date/Time: 05/04/2017 5:04 PM
[2017-05-04] MEDS ORDERED: PRED50TA PO (17:44)
[2017-05-04] MEDS ORDERED: HYDR-5688 PO (17:44)
[2017-05-04] MEDS ORDERED: CYCL10TA6 PO (17:44)
[2017-05-04] MEDS ORDERED: NORCO 5/325MG HOME PACK PO ONE (17:45)
[2017-05-04] MEDS ORDERED: FLEXERIL HOME PACK 10 MG VIAL PO ONE (17:45)
[2017-05-04 17:53] VITALS: BP 132/70; PULSE 82; O2SAT 96
--- NOTE | 2017-05-04 18:42 | EMERGENCY ROOM VISIT NOTE ---
History First contact with patient: 16:00 Chief Complaint: BACK PAIN Stated Complaint: MID/LOWER BACK PAIN. WC History of Present Illness The patient is a 27 year old male who presents to the Emergency Room with complaints of mid back pain that began about one hour ago. 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 He was helping transfer a resident, when the resident stopped using her legs to assist with the transfer. This caused the patient to hold the patient's weight to prevent her from falling to the floor. The patient had immediate discomfort in his back that was initially rated a 3/10. Over time it has increased in severity, and he currently rates it a 7/10. The pain does worsen with certain motion and position. He has not taken anything [id number] for his symptoms. No numbness or paresthesias. No other injuries. Review of Systems More than 10 systems were reviewed and otherwise negative with the exception of history of present illness. Past Medical/Surgical History Medical Problems: (1) Depression (2) Insomnia Family History Depression Social History Smoking Status: Former Smoker Alcohol Use: none Drug Use: none Marital Status: Housing Status: lives with significant other Current/Historical Medications Scheduled Cyclobenzaprine Hcl (Flexeril), 10 MG PO TID Ibuprofen (Ibuprofen), 600 MG PO DIRECTED Prednisone (Prednisone), 50 MG PO DAILY Scheduled PRN Hydrocodone/Acetaminophen 5MG/325MG ([place] 5MG/325MG), 1 TABLET PO Q6 PRN for Pain Physical Exam Vital Signs Date Time Temp Pulse Resp B/P (MAP) Pulse Ox O2 Delivery O2 Flow Rate FiO2 05/04/17 17:53 82 20 132/70 96 05/04/17 15:44 36.8 111 16 142/84 96 Room Air Physical Exam VITALS: Vitals are noted on the nurse's note and reviewed by myself. Vital signs stable. GENERAL: Well-developed, well-nourished, white male, who is in no acute distress and resting comfortably. Patient is cooperative with the examination. NECK: Supple without nuchal rigidity. No lymphadenopathy. No thyromegaly. Cervical spine is nontender. HEART: Regular rate and rhythm without murmurs gallops or rubs. LUNGS: Clear to auscultation bilaterally without wheezes, rales or rhonchi. No retractions or accessory muscle use. ABDOMEN: Positive normal bowel sounds x 4. Soft, nontender, without masses or organomegaly. No guarding or rebound tenderness. MUSCULOSKELETAL: No muscle atrophy, erythema, or edema noted. Full range of motion of both upper and lower extremities. No saddle paresthesias noted. There is palpable tenderness along the mid and lower thoracic spine without obvious step-off. No significant lower lumbar or cervical tenderness noted. NEURO: Patient was alert and oriented to person place and time. CN II through XII grossly intact. Medical Decision & Procedures ER Provider Diagnostic Interpretation: THORACIC SPINE 3 VIEWS HISTORY: Mid back injury at work COMPARISON: Thoracic spine 11/14/2014. FINDINGS: There is no fracture. No subluxation. Disc spaces are preserved. IMPRESSION: No fracture or subluxation within the thoracic spine. Medications Administered Medications (Trade) Dose Ordered Sig/David Route Start Time Stop Time Status Last Admin Dose Admin Ketorolac Tromethamine (Toradol Inj) 60 mg NOW STAT IM 05/04/17 16:06 05/04/17 16:08 DC 05/04/17 16:28 60 MG Dexamethasone Sodium Phosphate (Dexamethasone Inj Pf) 10 mg NOW ONCE IM 05/04/17 16:15 05/04/17 16:16 DC 05/04/17 16:28 10 MG Acetaminophen/ Hydrocodone Bitart ([place] 5/325mg Home Pack) 1 homepack UD ONCE PO 05/04/17 17:45 05/04/17 17:46 DC 05/04/17 17:52 1 HOMEPACK Cyclobenzaprine HCl (FLEXERIL 10MG Home Pack) 1 homepack UD ONCE PO 05/04/17 17:45 05/04/17 17:46 DC 05/04/17 17:52 1 HOMEPACK ED Course Physical exam and history were performed. Nursing notes, EMR, and Medication List were personally reviewed. Patient appears to have mid back pain after being injured at work. The patient is driving today, and I elected to treat him here in the department with 60 mg IM Toradol and 10 mg IM Decadron. X-rays were performed, and did not show obvious fracture or dislocation. On reevaluation the patient was much more comfortable in his emergency department bed. His pain had improved slightly, and he continues without neurologic deficit. Overall the patient appears well for discharge home. I will treat him with a short course of Vicodin, Flexeril, and prednisone. The patient is to follow with Workmen's Compensation for ongoing care and evaluation. He was otherwise invited back to the ER with any new, worsening, or concerning symptoms. The chart was completed utilizing [employer] Speech Voice Recognition Software. Grammatical errors, random word insertions, pronoun errors, and incomplete sentences are an occasional consequence of this system due to software limitations, ambient noise, and hardware issues. Any formal questions or concerns about the content, text, or information contained within the body of this dictation should be directly addressed to the provider for clarification. . Medical Decision Differential diagnosis: Etiologies such as musculoskeletal, disc herniation, fracture, aortic disease, metastatic disease, cord compression, discitis, infection, renal colic, gastrointestinal, acute exacerbation of chronic back pain, sciatica, cauda equina, as well as others were entertained. Impression Primary Impression: Back injury Departure Information Dispostion Home / Self-Care Condition GOOD Prescriptions Prednisone (Prednisone) 50 Mg Tab 50 MG PO DAILY for 4 Days, #4 TAB Prov: Anastacio Dominguez PA-C 05/04/17 Cyclobenzaprine Hcl (FLEXERIL) 10 Mg Tab 10 MG PO TID for 7 Days, #21 TAB Prov: Anastacio Dominguez PA-C 05/04/17 Hydrocodone/Acetaminophen 5MG/325MG ([place] 5MG/325MG) Tab 1 TABLET PO Q6 Y for Pain, #12 TAB For Initial Treatment Prov: Anastacio Dominguez PA-C 05/04/17 Forms HOME CARE DOCUMENTATION FORM, Work Instructions, Additional Instructions: Patient was seen and evaluated today in the emergency department fo medical care. Return to work on 05/09/2017 or at the instruction o Workmen's Compensation. IMPORTANT VISIT INFORMATION Patient Instructions My [facility] Additional Instructions You were seen and evaluated today on an emergency basis only. This is not a substitute for, or an effort to provide, complete comprehensive medical care. It is not possible to recognize and treat all injuries or illnesses in a single emergency department visit. For this reason it is recommended that you followup with Workmen's Compensation this week for ongoing care and evaluation. For baseline pain relief you may alternate ibuprofen and acetaminophen every 4 hours for pain control. Take 600 mg ibuprofen (Advil) and then 4 hours later take 1000 mg acetaminophen (Tylenol). Do not take more than 3000 mg acetaminophen in a single day. [place] (hydrocodone/acetaminophen) 5/325 mg every 6 hours as needed for worsening breakthrough pain. Do not drink or drive on [place]. This medication will likely make you tired. Do not take [place] and Tylenol at the same time as both contain acetaminophen. [place] may cause constipation. You may wish to take an [id number]-[id number] stool softener like Colace if this occurs. Flexeril 1 tablet up to 3 times a day as needed for muscle spasms. No driving, working, or alcohol use with Flexeril. Take prednisone as prescribed Do not lift greater than 5-10 pounds until instructed otherwise by Workmen's Compensation. You are welcome to return to the emergency department anytime with new, worsening, or concerning symptoms. Work Instructions Additional Work Instructions: Patient was seen and evaluated today in the emergency department for medical care. Return to work on 05/09/2017 or at the instruction of Workmen's Compensation.
== END 2017-05-04 17:53 | disposition home or self-care (01) ==
LOC: C.EDB 15:34 → C.EDD 17:53
DX: S29.9XXA Unspecified injury of thorax, initial encounter (principal); X50.0XXA Overexertion from strenuous movement or load, initial encounter; Y92.199 Unspecified place in other specified residential institution as the place of occurrence of the external cause; Y99.0 Civilian activity done for income or pay; F32.9 Major depressive disorder, single episode, unspecified; G47.00 Insomnia, unspecified; Z87.891 Personal history of nicotine dependence

== ENCOUNTER → 2017-09-18 | Outpatient (CLI) | payer BC, OTHER ==
[~2017-09-18] VITALS: Ht 167.6 cm; Wt 149.6 kg
[~2017-09-18] MED LIST changes: -ACET-1311 PO; +HYDR-5688 PO; +IBUP-1105 PO
[2017-09-18 15:15] VITALS: BP 125/99; PULSE 100; Ht 167.6 cm; Wt 149.6 kg
== END | disposition home or self-care (01) ==
LOC: C.NEUR 14:55
PROVIDERS: ATTEND Internal Medicine Pulmonary Disease
DX: G47.33 Obstructive sleep apnea (adult) (pediatric) (principal); E66.9 Obesity, unspecified; F41.8 Other specified anxiety disorders; Z88.0 Allergy status to penicillin

== ENCOUNTER → 2017-10-16 | Outpatient (CLI) | payer BC, OTHER ==
--- NOTE | 2017-10-17 06:32 | SPLIT NIGHT TECHNICIAN REPORT ---
[facility] Split Night Polysomnogram - [employer] Intervention [employer] Psychologist Report Study date: 10/16/2017 Referring Physician: Dr. Stevenson Deshpande DO Name: JOVANI MARSHALL [employer] Psychologist: JESÚS Sexton. Date of : 1990 Height: 27 years, Height 5' 6" Sex: Male Weight: 329 lbs Age: 27 Neck Circum: 20 inches BMI: Medications: 53.1 Tylenol Extra Strength 500 mg Patient History 27 yr. old male here for a diagnostic sleep study. Patient complains of snoring, witnessed apneas, and disturbed nocturnal sleep. Patients [place] Sleepiness Scale Score is 11/24. Parameters Monitored NPSG: E1-M2, E2-M1, Fp1-M2, Fp2-M1, F3-M2, F4-M2, F4-M1, C3-M2, C4-M2, C4-M1, O1-M2, O2-M2, O2-M1, T3-M2, T4-M1, P3-M2, P4-M1, CHIN1, CHIN2, HR, EKG, Legs, PFLOW, SNOR, FLOW, CFLOW, Tidal Volume, THOR, ABDO, SpO2, PLTH, CPRESS, ETCO2 Wave, ETCO2, pH SLEEP SUMMARY DATA DIAGNOSTIC TREATMENT Lights Out: 10:56:56 PM NONE Lights On: 1:59:26 AM 6:20:56 AM Total Recording Time (TRT): 182.6 min. 259.9 min. Total Sleep Time (TST): 85.5 min. 250.5 min. NREM Time: 69.5 min. 201.5 min. REM Time: 16.0 min. 49.0 min. Sleep Period Time (SPT): 101.5 min. 255.5 min. Sleep Efficiency (SE): 47 % 96 % Sleep Latency: 78.0 min. NONE min. Arousal Index: 52.6 15.6 PAP Treatment Levels: 4, 6, 8, 10, 11, 12, 13, 14 * Optimal Pressure(s) SLEEP STAGING DATA DIAGNOSTIC TREATMENT Duration (min) TST % Duration (min) TST % Stage Wake: 97.1 min. -- 9.4 min. -- WASO: 19.0 min. -- 5.0 min. -- NREM: 69.5 min. 81 % 201.5 min. 80 % Stage N1: 16.5 min. 19 % 8.5 min. 3 % Stage N2: 53.0 min. 62 % 120.0 min. 48 % Stage N3: 0.0 min. 0 % 73.0 min. 29 % REM: 16.0 min. 19 % 49.0 min. 20 % POSITIONAL DATA Event Count Index Event Count Index Supine: 2 120 4 1.8 Supine NREM: 2 120.0 3 1.9 Supine REM: N/A N/A 1 2 Non-Supine: 148 105.1 143 74.3 Non-Supine NREM: 145 127.0 142 81.5 Non-Supine REM: 3 11.3 1 5.5 AROUSAL SUMMARY DATA: Event Count Index Event Count Index Apnea Arousals: 17 21.8 22 9.6 Hypopnea Arousals: 53 37.2 28 6.7 Snore Arousals: 3 2.1 7 1.7 PLM Arousals: 0 0.0 3 0.7 Non-Specific Arousals: 3 2.1 3 0.7 Total Arousals: 75 52.6 65 15.6 MYOCLONUS (PLM) Event Count Index Event Count Index PLM: 3 2.1 13 3.1 PLM AROUSAL: 0 0.0 3 0.7 PLM W/O AROUSAL 3 2.1 10 2.4 PLM W/RESP EVENT 1 0.0 1 0.0 MYOCLONUS (PLM) Event Count Index Event Count Index LM: 1 11.9 55 13.2 LM AROUSAL: 1 0.7 4 1.0 LM W/O AROUSAL LM W/RESP EVENT LM NON SPECIFIC 7 4.9 33 7.9 HEART RATE DATA DIAGNOSTIC TREATMENT Sleep (bpm): 61 61 REM (bpm): 90 95 NREM (bpm): 89 93 Tachycardia Count: 0 0 Tachycardia Duration: 0.00 0 Bradycardia Count: 0 0 Bradycardia Duration: 0.00 0 DIAGNOSTIC PORTION TREATMENT PORTION RESPIRATORY DATA Event Count Index Event Count Index AHI: -- 105.3 -- 35.2 RDI: -- 105.3 -- 35 Obstructive Apnea: 31 21.8 38 9.1 Central Apnea: 0 0.0 1 0.2 Mixed Apnea: 0 0.0 1 0.2 Hypopnea: 119 83.5 107 25.6 RERA: 0 0.0 0 0.0 Total Apneas: 31 21.8 40 9.6 RESPIRATORY DATA REM NREM SLEEP REM NREM SLEEP Supine Position: Obstructive Apneas: N/A 0 0 0 0 0 Central Apneas: N/A 0 0 0 0 0 Mixed Apneas: N/A 0 0 0 0 0 Hypopneas: N/A 2 2 1 3 4 RERA N/A 0 0 0 0 0 Total Supine Events: N/A 2 2 1 3 4 Supine AHI: N/A 120.0 120 2 1.9 1.8 Supine RDI: N/A 120.0 120.0 1.6 1.9 1.8 REM NREM SLEEP REM NREM SLEEP Non-Supine Position: Obstructive Apneas: 0 31 31 1 37 38 Central Apneas: 0 0 0 0 1 1 Mixed Apneas: 0 0 0 0 1 1 Hypopneas: 3 114 117 0 103 103 RERA 0 0 0 0 0 0 Total Supine Events: 3 145 148 1 142 143 Supine AHI: 11.3 127.0 105.1 5.5 81.5 74.3 Supine RDI: 11.3 127.0 105.1 5.5 81.5 74.3 OXYGEN DESTAURATION DATA: Event Count Index Event Count Index REM Desaturations: 5 18.8 1 1.2 NREM Desaturations: 147 126.9 122 36.3 SNORE DATA DIAGNOSTIC TREATMENT Snore Time: 19.7 2:05:26 AM Snore TST%: 10 20 Snore Arousal Count: 3 7 Snore Arousal Index: 2.1 1.7 Desaturation Event Summary: Minimum %SpO2 Event Count Mean/Min/Max Duration(sec.) Desaturation Index % Time In Bed > 90 279 18.4 / 4.3 / 56.8 47.9 79.4 86 - 90 72 19.0 / 8.5 / 59.3 78.3 12.5 81 - 85 3 20.5 / 12.5 / 30.0 6.1 6.7 76 - 80 0 N/A 0.0 1.3 71 - 75 0 N/A 0.0 0.0 66 - 70 0 N/A 0.0 0.0 61 - 65 0 N/A 0.0 0.0 56 - 60 0 N/A 0.0 0.0 51 - 55 0 N/A 0.0 0.0 < 50 0 N/A 0.0 0.0 OXYGEN SATURATION DATA DIAGNOSTIC TREATMENT SpO2 Mean Sleep: 89 % 93 % SpO2 Mean REM: 90 % 95 % SpO2 Mean NREM: 89 % 93 % SpO2 Minimum Sleep: 76 % 80 % SpO2 Minimum REM: 84 % 91 % SpO2 Minimum NREM: 76 % 80 % Time Below 90% (TST): 40.4 33.8 Time Below 88% (TST): 26.3 23.3 Total REM NREM Awake <50% 0.0 min. 0.0 min. 0.0 min. 0.0 min. 51 - 60% 0.0 min. 0.0 min. 0.0 min. 0.0 min. 61 - 70% 0.0 min. 0.0 min. 0.0 min. 0.0 min. 71 - 80% 5.9 min. 0.0 min. 5.5 min. 0.4 min. 81 - 90% 84.7 min. 11.2 min. 70.2 min. 3.3 min. 91 - 100% 349.4 min. 53.8 min. 195.2 min. 100.5 min. Average 92 94 92 94 Minimum SpO2 76 84 76 77 Desaturation Event Index 42.0 5.5 59.6 22.0 # Desat. Events below 89% 198 2 189 7 Time(%) with Saturation below 89% 13.9 1.0 12.7 0.3 Time(min.) with Saturation below 89% 61.4 4.2 55.7 1.4 Recording [employer] Psychologist Comments: Mr. Marshall slept in the right, left, supine and prone positions. No cardiac arrhythmia or PLMs noted. No bruxism noted. Snoring was noted and scored as a 5 on a scale of 0 through 5. (0=no snoring, 5=snoring loud enough to be heard through a closed door or down the bhatti way) At 2:00 am Mr. Marshall met specific Split-Night criteria during the diagnostic portion of this study. CPAP was initiated at +4 CMH2O room air and up-titrated to a level of +14 CMH2O No Cflex. At 5:15 am MR. Marshall rolled to his right side and the apneas were steady increases were made late into the study. A Mirage FX nasal mask was used during titration. Mr. Marshall did not wake to use the restroom during the night. The final report will be interpreted and signed by a sleep physician. The completed physician report will then be placed in the patient medical record. Therapy Event: Therapy (cm H20) 0 4 6 8 10 11 12 13 14 Total Time at Pressure (min.) 182.6 12.5 13.6 12.8 20.7 139.1 5.7 21.1 34.5 TST at Pressure (min.) 85.5 7.1 13.6 12.8 20.7 136.1 5.2 20.6 34.5 # Periods 1 1 1 1 1 1 1 1 1 Sleep Onset (min.) 78.0 4.4 0.0 0.0 0.0 0.0 0.0 0.0 0.0 REM Onset (min.) 163.5 N/A N/A N/A N/A 13.9 N/A N/A 23.5 Sleep Efficiency % 46 57 100 100 100 97 91 97 100 Wakefulness (%) 53.2 43.0 0.0 0.0 0.0 2.2 8.8 2.4 0.0 Wakefulness (min.) 97.1 5.4 0.0 0.0 0.0 3.0 0.5 0.5 0.0 NREM 1 (%) 9.0 28.1 0.0 0.0 0.0 1.4 25.5 7.3 0.0 NREM 1 (min.) 16.5 3.5 0.0 0.0 0.0 2.0 1.5 1.5 0.0 NREM 2 (%) 29.0 28.9 100.0 100.0 61.3 22.4 65.7 90.3 68.1 NREM 2 (min.) 53.0 3.6 13.6 12.8 12.7 31.1 3.8 19.0 23.5 NREM 3 (%) 0.0 0.0 0.0 0.0 38.7 46.7 0.0 0.0 0.0 NREM 3 (min.) 0.0 0.0 0.0 0.0 8.0 65.0 0.0 0.0 0.0 REM (%) 8.8 0.0 0.0 0.0 0.0 27.3 0.0 0.0 31.9 REM (min.) 16.0 0.0 0.0 0.0 0.0 38.0 0.0 0.0 11.0 # Arousals 75 7 12 2 3 9 5 23 4 Arousal Index 52.6 59.1 53.0 9.4 8.7 4.0 57.6 67.1 7.0 # Snore 337 54 37 113 284 194 24 176 251 Snore Index 236.5 455.9 163.3 531.6 824.1 85.5 276.4 513.2 436.9 AHI 105.3 143.5 128.0 131.7 52.2 4.0 115.2 96.2 5.2 AHI Supine 120.0 N/A N/A N/A 69.5 0.5 N/A N/A N/A AHI Non-Supine 105.1 143.5 128.0 131.7 49.8 128.2 115.2 96.2 5.2 NREM AHI 126.9 143.5 128.0 131.7 52.2 4.9 115.2 96.2 5.1 REM AHI 11.3 N/A N/A N/A N/A 1.6 N/A N/A 5.5 RDI 105.3 143.5 128.0 131.7 52.2 4.0 115.2 96.2 5.2 # Obstructive 31 0 10 0 0 3 8 16 1 # Central Ap 0 0 0 0 0 1 0 0 0 # Mixed 0 0 0 0 0 0 1 0 0 # Hypopneas 119 17 19 28 18 5 1 17 2 RERAS 0 0 0 0 0 0 0 0 0 Total Respiratory Events 150 17 29 28 18 9 10 33 3 Time Below SpO2 89.00% (min.) 32.4 0.1 5.1 7.7 13.5 1.2 0.0 0.0 0.0 Mean NREM SpO2 (%) 89 94 90 87 87 94 94 95 94 Mean REM SpO2 (%) 90 N/A N/A N/A N/A 95 N/A N/A 96 Mean Sleep SpO2 (%) 89 94 90 87 87 94 94 95 95 Min NREM SpO2 (%) 76 88 81 80 80 86 89 89 91 Min REM SpO2 (%) 84 N/A N/A N/A N/A 91 N/A N/A 95 Position Supine (min.) 1.0 0.0 0.0 0.0 2.6 132.4 0.0 0.0 0.0 Position Non-supine (min.) 84.5 7.1 13.6 12.8 18.1 3.7 5.2 20.6 34.5 LM Index Sleep 14.0 33.8 39.7 61.2 55.1 5.3 0.0 26.2 3.5 LM Index NREM 15.5 33.8 39.7 61.2 55.1 6.7 0.0 26.2 5.1 LM Index REM 7.5 N/A N/A N/A N/A 1.6 N/A N/A 0.0 Mean Heart Rate (bpm) 61 62 51 51 53 67 46 48 61 Min Heart Rate (bpm) 44 48 44 44 43 36 37 39 45
--- NOTE | 2017-10-22 12:57 | POLYSOMNOGRAPH REPORT ---
CLINICAL DATA: The patient is a 27-year-old male with a BMI of 53.1. He is referred by [facility] for complaints of snoring, observed apneas, disturbed nocturnal sleep, and excessive daytime somnolence. His [place] sleepiness scale score is 11 out of a possible 24. This was a split study done in the sleep lab. SLEEP ARCHITECTURE: The study was divided into a diagnostic and treatment portion using nasal CPAP during the treatment portion. During the diagnostic portion of the study, the sleep period time was 101.5 minutes. The total sleep time was 85.5 minutes. The sleep efficiency was severely reduced to 47%. Sleep latency was severely prolonged to 78 minutes. Sleep consisted of stage N1 19%, stage N2 62%, stage N3 0%, stage REM 19%. During the treatment portion of the study, the sleep period time was 255.5 minutes. The total sleep time was 250.5 minutes. The sleep efficiency was 96%. Sleep consisted of stage N1 3%, stage N2 48%, stage N3 29%, stage REM 20%. AROUSAL DATA: During the diagnostic portion of the study, the patient had 75 arousals including 17 apnea arousals, 53 hypopnea arousals, 3 snoring arousals, and 3 nonspecific arousals. The arousal index was severely elevated at 52.6. During the treatment portion of the study, there were a total of 65 arousals including 22 apnea arousals, 28 hypopnea arousals, 7 snoring arousals, 3 PLM arousals, and 3 nonspecific arousals. The arousal index was 15.6. PLM DATA: During the diagnostic portion of the study, the patient had 3 periodic limb movements for a PLM index of 2.1. There were zero arousals associated with limb movements. During the treatment portion, there was a total of 13 periodic limb movements for an index of 3.1. There were 3 arousals, associated with limb movements for a PLM arousal index of 0.7. EKG: The cardiac rates ranged from 61-95 beats per minute. No cardiac arrhythmias noted. RESPIRATORY DATA: During the diagnostic portion of the study, the patient had a total of 150 respiratory events including 31 obstructive apneas and 119 hypopneas. Hypopneas were scored according to the 4% desaturation rule. The apnea hypopnea index was severely elevated at 105.3. During the treatment portion of the study, the patient's respiratory events were treated with nasal CPAP up to a final pressure of 14 cm. There was a total of 147 respiratory events including 38 obstructive apneas, 1 central apnea, 1 mixed apnea, and 107 hypopneas. The apnea hypopnea index was still significantly elevated at 35.2 events per hour. However, at the final pressure of 14 cm, the apnea-hypopnea index was only 5.2. OXIMETRY DATA: During the diagnostic portion of the study, the mean saturation was 89%. The minimum saturation was 76%. There was a total of 26.3 minutes with saturations less than 88%. During the treatment portion, the mean saturation was 93% with a minimum saturation of 80%. There was 23.3 minutes with saturations less than 88%. At the final pressure, there were no significant desaturations. PROFESSOR OF ENGLISH COMMENTS: Mr. Knight slept in the right, left, supine, and prone positions. No cardiac arrhythmia or PLMs noted. No bruxism noted. Snoring was noted and scored as a 5 on a scale of 0 through 5 with 5 representing snoring loud enough to be heard through a closed door or down the hallway. At 2 a.m., Mr. Knight met specific split night criteria during the diagnostic portion of the study. CPAP was initiated at 4 cm on room air and up titrated to a level of 14 cm. At 5:15 a.m., Mr. Knight rolled to his right side and the apneas were steadily increasing and changes were made late in the study. A Mirage FX nasal mask was used during titration. Mr. Knight did not awaken to use the restroom during the night. IMPRESSION: Severe obstructive sleep apnea - much improved with nasal CPAP at 14 cm. COMMENTS: The patient had a split study done because of very severe sleep apnea. This was associated with significant hypoxia. During the treatment portion, his sleep efficiency dramatically improved. The arousal index significantly improved. His sleep architecture improved with increase stage N3. He did have respiratory events late requiring an increase in pressure. At 14 cm, his apnea index was only 5.2, although he was only at that pressure for 34 minutes. Following the study, the patient indicated that he tolerated the mask and the pressure well and he felt rested. Overall, he felt that he slept better with CPAP. RECOMMENDATIONS: 1. It is advised that the patient be started on nasal CPAP at 14 cm. 2. It is advised that he be treated with a Mirage FX nasal mask. 3. Weight loss is advised in light of the severe elevation of body mass index at 53.1 events per hour. 4. If possible, the patient should avoid sleeping in the supine position. He also seemed to have increased respiratory events on the right side and thus that should be avoided as well. 5. The patient should be seen in followup between day 31 and day 90 after being started on CPAP as per the requirements of insurance providers.
== END | disposition home or self-care (01) ==
LOC: C.NEUR 20:00
PROVIDERS: ATTEND Internal Medicine Pulmonary Disease
DX: G47.33 Obstructive sleep apnea (adult) (pediatric) (principal); F41.8 Other specified anxiety disorders; R53.83 Other fatigue; E66.9 Obesity, unspecified